=== PATIENT | female | born 1985 | race Caucasian/White ===

== ENCOUNTER → 2017-02-04 | Outpatient (CLI) | payer OTHER ==
--- NOTE | ~2017-02-04 | US6 ---
[facility] A Service of [facility] RADIOLOGY TEXT RESULTS PATIENT: LORENA WEBB LOCATION: [facility] : [birth year] UNIT #: [id number] AGE: [address]: Bishnu Slater MD SEX: F ORDER DR: [id number] [facility] [address] [place], [place] [address] [id number] O MR#: [id number] Acc #: [id number] NAME: LORENA WEBB : 1985 SEX: F STUDY DATE/TIME: 02/04/2017 13:26 UNIT: [facility] ROOM: STUDY DESCRIPTION: US Abdominal Limited Attending Physician: Bishnu Slater M.D. Ordering Physician: Bishnu Slater M.D. Primary Care Physician: Generic Doctor MEDICAL IMAGING REPORT This report is preliminary unless electronic signature is present EXAM Right upper quadrant ultrasound, 02/04/2017. HISTORY Right upper quadrant abdominal pain radiating across abdomen for 18 months. No known injury. FINDINGS Ultrasound examination of the gallbladder is negative. There is no cholelithiasis, gallbladder wall thickening, or bile duct dilatation. The visualized liver is negative. IMPRESSION Negative gallbladder ultrasound examination. Dictated by... Frankie Rosado M.D. THIS IS AN ELECTRONICALLY VERIFIED REPORT Frankie Rosado M.D. at 02/05/2017 10:23 AM MARISELA/felisa TD: 02/04/2017 19:51 JOB #: [id number] MEDICAL IMAGING REPORT Page 1 of 1 COPY
== END | disposition home or self-care (01) ==
LOC: CWCC 13:01
DX: R10.11 Right upper quadrant pain (principal)
CPT/HCPCS: 76705